=== PATIENT | male | born 2000 | race Caucasian/White ===

== ENCOUNTER 2021-12-19 16:08 | Emergency (ER) | payer MEDICAID ==
[~2021-12-19] VITALS: Ht 177.8 cm; Wt 108.4 kg
--- NOTE | 2021-12-19 16:16 | NUR ---
DANA pt stated he went to gym to work out, felt heart pain real bad, taken to CT STAT for scan / eval
[2021-12-19] MEDS ORDERED: IOHEXOL-350 100 ML VIAL IV ONE (16:18)
[2021-12-19] MEDS ORDERED: CT SWABBABLE VALVE TRANS SET 1 EA INFUS.SET MC ONE (16:18)
[2021-12-19] MEDS ORDERED: IV NS 0.9% 250 ML IV ONE (16:18)
[2021-12-19 16:29] LABS: BASOPHILS # (AUTO) 0.1 K/uL (0.0-0.2); BASOPHILS % (AUTO) 0.6 % (0.0-2.0); EOSINOPHILS % (AUTO) 1.9 % (0.0-6.0); HEMATOCRIT 42 % (39-51); HEMOGLOBIN 13.8 g/dL (13.5-17.5); LYMPHOCYTES # (AUTO) 2.2 K/uL (0.8-4.8); LYMPHOCYTES % (AUTO) 24.3 % (20.0-44.0); MEAN CORPUSCULAR HGB CONC 33 g/dl (31.0-36.0); MEAN CORPUSCULAR VOLUME 88 fL (80-96); MONOCYTES # (AUTO) 0.8 K/uL (0.1-1.30); MONOCYTES % (AUTO) 8.9 % (2.0-12.0); NEUTROPHILS # (AUTO) 5.8 K/uL (1.8-8.9); NEUTROPHILS % (AUTO) 64.3 % (43.0-81.0); PLATELET COUNT (AUTO) 219 K/uL (150-450); RED BLOOD CELL COUNT(AUTO) 4.76 MIL/uL (4.5-6.0); WHITE BLOOD COUNT (AUTO) 9.1 K/uL (4.3-11.0)
[2021-12-19 16:39] LABS: CALCIUM, SERUM 8.8 mg/dL (8.5-10.1); CARBON DIOXIDE 29 mmol/L (21-32); CHLORIDE 104 mmol/L (98-107); CREATININE 0.9 mg/dL (0.6-1.3); GLUCOSE 93 mg/dL (74-106); SODIUM SERUM 139 mmol/L (136-145); UREA NITROGEN, BLOOD 16 mg/dL (7-18)
--- NOTE | 2021-12-19 17:03 | NUR ---
BS = 79
--- NOTE | 2021-12-19 17:04 | NUR ---
Neurologist eval performed via camera, awaiting results, RN EVal = Left side facial droop noted, unable to smile , facial symmetry uneven left side weakness, left arm held up weakness noted, when drink water left side water falls out unable to close lips fully on Left Side.
--- NOTE | 2021-12-19 17:09 | NUR ---
VS = 134/91, P = 93, 02 = 100%, RR 21, pain = 0
--- NOTE | 2021-12-19 17:10 | NUR ---
CALLED [facility] FOR HIGHER LEVEL OF CARE TRANSPORT. SPOKE TO BULMARO AND WILL CALL BACK REGARDING TRANSFER INFO.
--- NOTE | 2021-12-19 17:12 | NUR ---
CALLED [facility] FOR TRANSFER HIGHER LEVEL OF CARE. UNABLE TO ACCOMODATE DUE TO CAPACITY.
--- NOTE | 2021-12-19 17:19 | NUR ---
COVID SWAB DONE AND SENT TO LAB
--- NOTE | 2021-12-19 17:20 | NUR ---
1515 - VS : b/p = 132/90 , p = 92, 02 = 100%, RR = 20, pain = 0
--- NOTE | 2021-12-19 17:20 | NUR ---
RECEIVED A CALL FROM [facility]. THEY WILL SET UP TRANSPORT TO [facility] VIA THE [facility]. WILL CALL US BACK WITH TO .
[2021-12-19] MEDS ORDERED: ALTEPLASE 81 MG in WATER FOR INJECTION,STERILE 81 ML IV ONE (17:30)
[2021-12-19] MEDS ORDERED: ALTEPLASE BOLUS DOSE IV ONE (17:30)
--- NOTE | 2021-12-19 17:36 | NUR ---
1735 VS = 136/ 92, p = 82, RR = 21, 02 = 99 %, pain = 0
--- NOTE | 2021-12-19 17:36 | NUR ---
1725 VS = b/p = 134/91, p = 80, RR = 23, pain = 0 , 02 = 98 %
--- NOTE | 2021-12-19 18:24 | NUR ---
test engineering intern arrived for merchandise pickup/receiving associate and transfer report given to RN at location, family at bedside will drive to meet pt there, IV gauge 18 intact right hand, IV gauge 20 intact Left Upper Arm.
--- NOTE | 2021-12-19 18:24 | NUR ---
[facility] TRANSPORT AT BEDSIDE.
[2021-12-19 18:36] VITALS: BP 134/83
== END 2021-12-19 18:37 | disposition short-term general hospital (02) ==
LOC: ER 16:08
DX: I63.9 Cerebral infarction, unspecified (principal); G83.24 Monoplegia of upper limb affecting left nondominant side; R47.81 Slurred speech; R29.810 Facial weakness; R47.1 Dysarthria and anarthria; R29.709 NIHSS score 9; Z20.822 Contact with and (suspected) exposure to COVID-19
CPT/HCPCS: 99291; 70498; 96365; 71045; 87426; 93005; 70496; 85025; 80048; 36415; 84484; 85730; 82962 ×2; 70450; J2997; J7050; Q9967; C9803